=== PATIENT | male | born 1995 | race Caucasian/White ===

== ENCOUNTER 2018-03-19 10:03 | Inpatient (IN) | payer SELFPAY ==
[~2018-03-19] VITALS: Ht 182.9 cm; Wt 64.4 kg
[2018-03-19] MEDS ORDERED: SODIUM CHLORIDE FLUSH 10ML SYR IVF ONE (11:00)
[2018-03-19] MEDS ORDERED: HYDROmorphone 2 MG/ML, 1ML ONE ×2 (11:08→11:41)
[2018-03-19 11:09] LABS: BASOPHILS # (AUTO) 0.04 x10^3/uL (0-0.1); BASOPHILS % (AUTO) 0 % (0-1); EOSINOPHILS # (AUTO) 0.02 x10^3/uL (0-0.4); EOSINOPHILS % (AUTO) 0 % (1-7); LYMPHOCYTES # (AUTO) 1.52 x10^3/uL (1-3.4); LYMPHOCYTES % (AUTO) 12 % (22-44); MD NO; MEAN CORPUSCULAR HEMOGLOBIN 30.7 pg (27.5-34.5); MEAN CORPUSCULAR HGB CONC 34.1 g/dL (33.2-36.2); MEAN CORPUSCULAR VOLUME 90.3 fL (81-97); MEAN PLATELET VOLUME 7.6 fL (7.4-10.4); MONOCYTES # (AUTO) 1.18 x10^3/uL (0.2-0.8); MONOCYTES % (AUTO) 10 % (2-9); NEUTROPHILS # (AUTO) 9.53 x10^3/uL (1.8-6.8); NEUTROPHILS % (AUTO) 78 % (42-75); PLATELET COUNT 262 x10^3/uL (130-400); RED BLOOD COUNT 5.28 x10^6/uL (4.38-5.82); RED CELL DISTRIBUTION WIDTH 13.7 % (9.4-14.8)
[2018-03-19] MEDS: HYDROmorphone 1 MG/ML, 1ML IVPush PRN ×2 (11:13→11:46)
[2018-03-19 11:20] LABS: ALBUMIN 3.5 g/dL (3.4-5.0); ANION GAP 7 mmol/L (5-15); CALCIUM 8.4 mg/dL (8.5-10.1); CHLORIDE 104 mmol/L (98-107); CREATININE 0.99 mg/dL (0.7-1.3)
[2018-03-19] MEDS ORDERED: SODIUM CHLORIDE 0.9% 1,000ML IVBOLUS ONE (11:30)
[2018-03-19] MEDS ORDERED: CEFAZOLIN PMX 1GM/50ML 50 ML IV ONE (12:00)
[2018-03-19] MEDS ORDERED: MIDAZOLAM 1 MG/ML, 2ML ONE (12:18)
[2018-03-19] MEDS ORDERED: FENTANYL PF 250 MCG/5ML ONE (12:19)
[2018-03-19] MEDS ORDERED: ONDANSETRON 2MG/ML, 2ML ONE (12:25)
[2018-03-19] MEDS ORDERED: DEXAMETHASONE 4 MG/ML, 5ML ONE (12:25)
[2018-03-19] MEDS ORDERED: PROPOFOL 10 MG/ML, 20ML ONE (12:25)
[2018-03-19] MEDS ORDERED: ROCURONIUM 10MG/ML,5ML ONE (12:25)
[2018-03-19] MEDS ORDERED: SUCCINYLCHOLINE 20 MG/ML, 10ML ONE (12:25)
[2018-03-19] MEDS ORDERED: BUPIVACAINE/PF 0.25% ONE (12:45)
[2018-03-19] MEDS ORDERED: MEPERIDINE/PF 50 MG/ML ONE ×2 (13:04→14:06)
[2018-03-19] MEDS ORDERED: ALBUTEROL SULFATE 2.5 MG/3 ML NPPB PRN (14:00)
[2018-03-19] MEDS ORDERED: PROMETHAZINE 25 MG/ML, 1ML IV PRN (14:00)
[2018-03-19] MEDS ORDERED: KETOROLAC 30 MG/1 ML IV PRN (14:00)
[2018-03-19] MEDS ORDERED: MEPERIDINE/PF 25MG/0.5ML IVPush PRN (14:00)
[2018-03-19] MEDS ORDERED: ACETAMINOPHEN 325 MG TABLET PO PRN (14:00)
[2018-03-19] MEDS ORDERED: OXYcodone 5 MG/5 ML ORAL.SOL UDC PO PRN (14:00)
[2018-03-19] MEDS: FENTANYL PF 100 MCG/2ML IV PRN ×2 (14:00→14:09)
[2018-03-19] MEDS ORDERED: MORPHINE SULFATE 4 MG/ML, 1ML IVPush PRN (14:00)
[2018-03-19] MEDS ORDERED: OXYcodone 5 MG/5 ML ORAL.SOL UDC ONE (14:01)
[2018-03-19] MEDS ORDERED: FENTANYL PF 100 MCG/2ML ONE (14:01)
[2018-03-19] MEDS ORDERED: KETOROLAC 30 MG/1 ML ONE (14:18)
[2018-03-19 14:50] VITALS: BP 113/68
[2018-03-19] MEDS ORDERED: OXYC5SOL8 PO (15:17)
[2018-03-19] MEDS ORDERED: IBUP-1222 PO (15:17)
[2018-03-19 16:00] VITALS: BP 114/67
== END 2018-03-19 16:10 | disposition home or self-care (01) | DRG 712 ==
LOC: ED 11:31 → EDIP 11:32 → ED 11:45 → 4NOR 14:50
PROVIDERS: ADMIT Urology; ATTEND Urology
PROC: 0VS90ZZ Reposition Right Testis, Open Approach (ICD-10-PCS; 2018-03-19)
PROC: 0VJ80ZZ Inspection of Scrotum and Tunica Vaginalis, Open Approach (ICD-10-PCS; 2018-03-19)
PROC: 0VBB0ZZ Excision of Left Testis, Open Approach (ICD-10-PCS; principal; 2018-03-19 12:00)
DX: N44.00 Torsion of testis, unspecified (principal); D17.6 Benign lipomatous neoplasm of spermatic cord; N43.3 Hydrocele, unspecified
CPT/HCPCS: 36415; 76870; 80048; 82040; 85025; 88304; 88305; 96365; 96375; 96376; J0690; J1100; J1170; J2175; J2250; J2405; J2704; J3010; J3490; J0330; J7030